=== PATIENT | female | born 1970 | race American Indian/Alaskan Native ===

== ENCOUNTER 2017-01-18 17:50 | Emergency (ER) | payer SELFPAY ==
[2017-01-18 18:08] VITALS: BP 150/85
--- NOTE | 2017-01-18 18:25 | Emergency Department Report ---
Chief Complaint: Pain General Stated Complaint: LUPUS FLARE UP Time Seen by Provider: 01/18/17 18:22 - HPI History of Present Illness: PT states she ran out of Plaquenil 3 weeks ago. PT states she has been having pains x 2 weeks. - ROS Review of Systems: feels hot - but Safia does not think she has had fever - urinary frequency - cough - Exam Vital Signs: Vital Signs 01/18/17 18:03 Temperature 98.3 F Pulse Rate 98 H Respiratory 20 Rate Blood Pressure 150/85 O2 Sat by Pulse 100 Oximetry Physical Exam: pt looks well, non toxic no focal weakness noted gcs 15 steady gait MSE screening note: Focused history and physical exam performed. Due to findings the following was ordered: labs ED Disposition for MSE Condition: Stable
[2017-01-18 20:18] LABS: Basophils % (Auto) 0.5 % (0.0-1.8); Hematocrit 37.8 % (30.3-42.9); Hemoglobin 12.3 gm/dl (10.1-14.3); Mean Corpuscular HGB Conc 32 % (30-34); Mean Corpuscular Hemoglobin 29 pg (28-32); Mean Corpuscular Volume 88 fl (79-97); Platelet Count 386 K/mm3 (140-440); Red Blood Count 4.29 M/mm3 (3.65-5.03); Red Cell Distribution Width 15.7 % (13.2-15.2); White Blood Count 17.2 K/mm3 (4.5-11.0)
[2017-01-18 20:35] LABS: Alanine Aminotransferase 10 units/L (7-56); Albumin 4.4 g/dL (3.9-5); Albumin/Globulin Ratio 1.5 %; Alkaline Phosphatase 65 units/L (35-129); Anion Gap 17 mmol/L; Blood Urea Nitrogen 11 mg/dL (7-17); Calcium 9.2 mg/dL (8.4-10.2); Carbon Dioxide 27 mmol/L (22-30); Chloride 98.6 mmol/L (98-107); Glucose 148 mg/dL (65-100); Potassium 4.3 mmol/L (3.6-5.0); Sodium 138 mmol/L (137-145); Total Protein 7.3 g/dL (6.3-8.2)
== END 2017-01-18 23:11 | disposition left against medical advice (07) ==
LOC: ED 17:50
DX: M32.9 Systemic lupus erythematosus, unspecified (principal); Z53.21 Procedure and treatment not carried out due to patient leaving prior to being seen by health care provider
CPT/HCPCS: 36415; 80053; 85025